=== PATIENT | male | born 1995 | race Asian ===

== ENCOUNTER 2018-11-25 15:35 | Emergency (ER) | payer OTHER ==
[~2018-11-25] VITALS: Ht 182.9 cm; Wt 107.0 kg
[2018-11-25 17:02] VITALS: BP 134/90
[2018-11-25] MEDS ORDERED: BACITRACIN ZINC OINT UDPKT TOP ONE (18:15)
== END 2018-11-25 18:55 | disposition home or self-care (01) ==
LOC: ER 16:19
DX: L72.3 Sebaceous cyst (principal); L03.113 Cellulitis of right upper limb
CPT/HCPCS: 99283

== ENCOUNTER 2019-01-05 21:05 | Emergency (ER) | payer OTHER ==
[~2019-01-05] VITALS: Ht 182.9 cm; Wt 104.0 kg
[2019-01-06 01:22] VITALS: BP 121/72
[2019-01-06] MEDS ORDERED: KETOROLAC 60MG/2ML VIAL IM ONE (02:15)
== END 2019-01-06 02:21 | disposition home or self-care (01) ==
LOC: ER 21:05
DX: M54.16 Radiculopathy, lumbar region (principal); M54.5 Low back pain; F17.210 Nicotine dependence, cigarettes, uncomplicated
CPT/HCPCS: 96372; 99283; J1885